=== PATIENT | female | born 1985 | race Caucasian/White ===

== ENCOUNTER 2024-01-27 08:58 | Outpatient (CLI) | payer OTHER, SELFPAY | END 2024-01-27 08:59 | disposition home or self-care (01) | PROVIDERS: Visit Provider Nurse Practitioner Family | DX: T81.31XA Disruption of external operation (surgical) wound, not elsewhere classified, initial encounter (principal); E66.9 Obesity, unspecified; Z68.33 Body mass index [BMI] 33.0-33.9, adult | CPT/HCPCS: 11042; 87070; G0463 ==

== ENCOUNTER 2024-01-31 14:57 | Outpatient (CLI) | payer OTHER, SELFPAY | END 2024-01-31 14:58 | disposition home or self-care (01) | LOC: WOUND 14:57 | PROVIDERS: Visit Provider Nurse Practitioner Family | DX: T81.31XA Disruption of external operation (surgical) wound, not elsewhere classified, initial encounter (principal) | CPT/HCPCS: 87070; 97597; G0463 ==

== ENCOUNTER 2024-02-01 09:03 | Outpatient (CLI) | payer OTHER, SELFPAY ==
--- NOTE | 2024-02-01 09:15 | MR_ITS ---
Patient: FRANKY JACINTO Facility:?[facility] Patient ID:?[id number] Site Patient ID:?[id number]. Site :?[id number] Study:?MRI-Pelvis (Bony) W/ and W/O Cont 20 CC DOATERM OSTEO-02/01/2024 11:09:32 AM Ordering Physician:?MINDA ELY Final Report: INDICATION: Tailbone wound. History of prior tailbone resection. TECHNIQUE: Noncontrast and contrast-enhanced MRI of the pelvis. 20 milliliters of Dotarem intravenous gadolinium was administered. COMPARISON: No prior. FINDINGS: Postsurgical changes of coccygectomy. There is a gas and fluid containing collection at the resection site which measures proximally 3 x 1.8 x 3.2 centimeters in size. This is noted on sagittal T1 post meryl fat-sat image number 18 of series 12 for example. There is some surrounding soft tissue enhancement which may relate to granulation tissue or cellulitis. No effacement of fatty marrow within the sacrum to suggest sacral osteomyelitis. No other areas of pelvic osteomyelitis. No pelvic fracture. No avascular necrosis. The hip joint spaces are maintained. No tendon tear or bursitis. IMPRESSION: 1. Postsurgical changes of coccygectomy. 2. 3.2 cm gas and fluid containing collection at the resection site. 3. Surrounding soft tissue enhancement which may relate to granulation tissue or cellulitis. 4. No sacral osteomyelitis. Dictated by Cosme Luna MD @ 02/01/2024 1:59:06 PM Signed by:?Cosme Luna MD @02/01/2024 1:59:06 PM (Electronic Signature)
== END 2024-02-01 09:04 | disposition home or self-care (01) ==
PROVIDERS: Visit Provider Nurse Practitioner Family
DX: T81.31XA Disruption of external operation (surgical) wound, not elsewhere classified, initial encounter (principal)
CPT/HCPCS: 72197; A9575

== ENCOUNTER 2024-02-02 11:16 | Outpatient (CLI) | payer OTHER, SELFPAY | END 2024-02-02 11:17 | disposition home or self-care (01) | LOC: WOUND 11:16 | PROVIDERS: Visit Provider Nurse Practitioner Family | DX: T81.31XA Disruption of external operation (surgical) wound, not elsewhere classified, initial encounter (principal) | CPT/HCPCS: G0463 ==

== ENCOUNTER 2024-02-04 14:49 | Outpatient (CLI) | payer OTHER, SELFPAY | END 2024-02-04 14:50 | disposition home or self-care (01) | PROVIDERS: Visit Provider Nurse Practitioner Family | DX: T81.31XA Disruption of external operation (surgical) wound, not elsewhere classified, initial encounter (principal) | CPT/HCPCS: G0463 ==